=== PATIENT | male | born 1985 | race Caucasian/White ===

== ENCOUNTER → 2016-12-05 | Outpatient (CLI) | payer OTHER ==
--- NOTE | ~2016-12-05 | EXE ---
[facility] [address] [place] [address] STRESS ECHOCARDIOGRAM Name: ANTHONY RANDOLPH Room #: REG Rich[facility]#: [id number] Admission: 12/05/16 Attend Phys: Mykel Russ Discharge: Date of : 89 Date of Service: 12/05/16 1636 Report #: [id number] THIS REPORT FOR: //name// APPROVED REPORT Exam: Stress Echocardiogram Indication: Palpitations Patient Location: Out-Patient Room #: Echo lab Status: routine HR: 73 bpm Medical History Medical History: Tachycardia Allergies: No known drug allergies Cardiac Risk Factors: Hyperlipidemia Exercise History: Physically active Procedure The patient underwent an Exercise Stress Test using the Sina Protocol. Blood pressure, heart rate, and EKG were monitored. An Echocardiogram was performed by orthotic finish grinding technician in four stages in quad fashion. At peak stress, four selected images were obtained and placed side by side with resting images for comparison. Stress Test Details Stress Test: Exercise stress testing was performed using a Sina protocol. HR Resting HR: 73 bpm Max Heart Rate (APMHR): 191 bpm Max HR Achieved: 193 bpm Target HR (85% APMHR): 162 bpm % of APMHR: 101 Recovery HR: 108 bpm HR response to stress: Normal HR response to stress BP Resting BP: 126/92 mmHg Max BP: 186/68 mmHg Recovery BP: 148/86 mmHg ECG Resting ECG: Sinus Rhythm Stress ECG: Sinus Rhythm Arrhythmia: None [facility] [address] [place] [address] STRESS ECHOCARDIOGRAM Name: ANTHONY RANDOLPH Room #: REG [facility]#: [id number] Admission: 12/05/16 Attend Phys: Mykel Russ Discharge: Date of : 89 Date of Service: 12/05/16 1636 Report #: [id number] Recovery ECG: Sinus Rhythm Clinical Reason for Termination: Maximal effort Exercise duration: 15 min sec Highest Stage Achieved: Stage 5: 5.0 mph at 18% grade. Exercise capacity: 17.5 METs Overall Exercise Capacity for Age: Excellent Stress ECG Conclusion 1. SUBJECTIVELY NEGATIVE FOR ISCHEMIA 2. ELECTROCARDIOGRAPHICALLY NEGATIVE FOR ISCHEMIA 3. EXCELLENT FUNCTIONAL CAPACITY Pre-Stress Echo The resting Echocardiogram showed normal left ventricular contractility with an estimated Ejection Fraction of about 55-60%. Normal wall motion in all segments on baseline images. Post-Stress Echo The stress Echocardiogram showed normal left ventricular contractility with an estimated Ejection Fraction of about 65-70%. Normal augmentation of wall motion in all segments on post stress images. Clinical Normal augmentation of myocardial wall segments using a 17 segment model. No clinical or ECG evidence for ischemia. Conclusion Clinical Response: Non-ischemic Exercise Capacity: Superior Stress ECG Response: Non-ischemic Stress Echo Images: Non-ischemic 1. LOW RISJ STUDY No prior study available for comparison. Other Information Study Quality: [facility] [address] [place] [address] STRESS ECHOCARDIOGRAM Name: ANTHONY RANDOLPH Room #: REG [facility]#: [id number] Admission: 12/05/16 Attend Phys: Mykel Russ Discharge: Date of : 89 Date of Service: 12/05/161635 Report #: [id number] <Conclusion> 1. [facility]OW [facility] <ELECTRONICALLY SIGNED> By: Jarrett Foster MD 12/05/161635 35 35 Jarrett Foster MD /INF
== END ==
LOC: CV 10:08
DX: R00.2 Palpitations (principal)

== ENCOUNTER → 2018-07-19 | Outpatient (CLI) | payer OTHER | LOC: RAD 08:53 | DX: R63.4 Abnormal weight loss (principal); A68.9 Relapsing fever, unspecified ==